=== PATIENT | female | born 1985 | race Caucasian/White ===

== ENCOUNTER 2017-08-02 19:57 | Emergency (ER) | payer OTHER ==
[2017-08-02] MEDS ORDERED: NS 1,000 ML IV ONE (20:06)
--- NOTE | 2017-08-02 20:06 | EDPHY ---
H & P Stated Complaint: CRAMPING BLEEDING 6 WEEKS + HCG Source: Patient, Family () Exam Limitations: No limitations - Personal History LMP (Females 10-55): Over 28 Days Ago Current Tetanus/Diphtheria Vaccine: Yes Current Tetanus Diphtheria and Acellular Pertussis (TDAP): Yes Tetanus Vaccine Date: 03/25 - Medical/Surgical History Hx Asthma: Yes Hx Chronic Respiratory Disease: No Hx Diabetes: No Hx Cardiac Disease: No Hx Renal Disease: No Hx Cirrhosis: No Hx Alcoholism: No Hx HIV/AIDS: No Hx Splenectomy or Spleen Trauma: No Other PMH: D&C - Social History Smoking Status: Never smoked Time Seen by Provider: 08/02/17 20:06 HPI/ROS: HPI: This is a 32-year-old female who presents with Chief Complaint: CRAMPING BLEEDING 6 WEEKS + HCG Location:vaginal Quality: bleeding Duration: 30 min prior to arrival Signs and Symptoms: no fever, no nausea, no vomiting, no hematemesis, no blood in stool, no abdominal bloating, no diarrhea, no back pain, no urinary symptoms , no vaginal discharge, no indigestion, no chest pain, no shortness of breath Timing: Acute Severity: Mild Context: Patient is currently 6 weeks , presents with sudden onset of light red scant amount of vaginal bleeding while she was taking out the charge approximately 30 min prior to arrival. She reports that she also has some nonradiating pelvic cramping. Denies abdominal pain/nausea/vomiting/diarrhea. No recent sexual activity. She believes that her blood type was A positive. She reports that she has had 1 living child and 1 miscarriage in the past with a D&C 04/29/[address]. Murcia. Patient reports that they recently became through intravenous fertilization. Patient is somewhat difficult to understand due to heavy accent. Modifying Factors: None Comment: ROS: see HPI Constitutional: No fever, no chills, no weight loss Eyes: No blurred vision Respiratory: No shortness of breath, no cough Cardiovascular: No chest pain, no palpitations Gastrointestinal: No nausea, no vomiting, no diarrhea, no hematemesis, no blood in stool Genitourinary: No dysuria, no blood in urine Extremities: No myalgias, no edema Neurologic: No weakness, no numbness Skin: No rashes, no petechiae Hematologic: No bruising, no bleeding MEDICAL/SURGICAL/SOCIAL HISTORY: Medical history: Generally healthy. Does not take any regular medications. Surgical history: D&C Social history: . CONSTITUTIONAL: Polite and cooperative, adult female, at bedside, awake and alert, no obvious distress HEENT: Atraumatic and normocephalic, PERRL, EOMI. Tympanic membranes clear. Oropharynx clear, no exudate and moist pink mucosa. Airway patent. No lymphadenopathy. No meningismus. Cardiovascular: Normal S1/S2, regular rate, regular rhythm, without murmur rub or gallop. PULMONARY/CHEST: Symmetrical and nontender. Clear to auscultation bilaterally. Good air movement. No accessory muscle usage. ABDOMEN: Soft, nondistended, nontender, no rebound, no guarding, no peritoneal signs, no masses or organomegaly. No CVAT. EXTREMITIES: 2/2 pulses, strength 5/5, no deformities, no clubbing, no cyanosis or edema. NEUROLOGICAL: no focal neuro deficits. GCS 15. SKIN: Warm and dry, no erythema. no rash. Good capillary refill. (July Weinberg) Constitutional: Initial Vital Signs Temperature (C) 36.9 C 08/02/17 19:58 Heart Rate 83 08/02/17 19:58 Respiratory Rate 18 08/02/17 19:58 Blood Pressure 115/79 08/02/17 19:58 O2 Sat (%) 96 08/02/17 19:58 O2 Delivery Mode Room Air Allergies/Adverse Reactions: No Known Allergies Allergy (Unverified 04/29/16 07:56) Home Medications: Medication Instructions Recorded Estrogen,Con/M-Progest Acet 08/02/17 Medical Decision Making - Diagnostics Imaging Results: Imaging Impressions Obstetrics Ultrasound 08/02/17 20:07 Impression: 1. Single living intrauterine gestation with estimated gestational age of 6 weeks 3 days by crown-rump length, with EDC of March 25, 2018. 2. 4.2 cm subchorionic hemorrhage. 3. Additional findings as above. Findings discussed with July Weinberg on 08/02/2017 at 21:11. ED Course/Re-evaluation: Labs, urinalysis, ultrasound, IV fluids ordered Blood type A positive; RhoGAM not indicated 2044: Labs reviewed; H&[place] [id number] 2119: Called by radiologist who advised that there is a single intrauterine dating 6 weeks 3 days with mild subchorionic hemorrhage and mild free fluid. No signs of ovarian torsion/ectopic Urinalysis shows no signs of infection; no ketones Patient given results; she sees the fertility clinic Tuesday and will call Dr. Murcia to establish care to have repeat HCG and ultrasound. She is placed on pelvic rest. Patient is well-versed in miscarriage precautions. This patient was seen under the supervision of my secondary supervising physician. I evaluated care for this patient independently. Discussed this patient with Dr. Soler who did not see the patient. (July Weinberg) The patient was evaluated and managed by the physician social media assistant. I have reviewed this chart and I agree with the findings and plan of care as documented , as indicated by my signature. I am the secondary supervising physician. ( Jillian Soler) Differential Diagnosis: Vaginal bleeding including but not limited to ectopic , menses, miscarriage, and dysfunctional uterine bleeding. (July Weinberg) - Data Points Laboratory Results: Laboratory Results 08/02/17 20:15 08/02/17 20:15 Medications Given: Discontinued Medications Sodium Chloride (Ns) 1,000 mls @ 0 mls/hr IV ONCE ONE; Wide Open PRN Reason: Protocol Stop: 08/02/17 20:07 Last Admin: 08/02/17 20:11 Dose: 1,000 mls Departure - Departure Disposition: Home, Routine, Self-Care Clinical Impression: First trimester bleeding Condition: Good Instructions: Threatened Miscarriage (ED), Pelvic Rest (ED) Additional Instructions: Consume a minimum of 8-10 glasses of water or electrolyte fluid replacement drinks that include Gatorade, Powerade, Pedialyte. Observe pelvic rest. Please do not engage in any contact sports or moderate physical activity. serum beta HCG level= [id number] Attend your fertility clinic on Tuesday. Call Dr. Murcia office to have an appointment in the next 3-5 days. At which time , they will repeat your serum beta HCG and may or may not perform another ultrasound. Return to the ER immediately if you experience new, continued or worsening abdominal pain, increased vaginal bleeding, fevers/chills, inability to tolerate oral intake, new pain, or any other symptoms that concern you. Referrals: Cecilia Feng MD [Primary Care Provider] - As per Instructions oMnse Murcia DO [Doctor of Osteopathy] - As per Instructions
[2017-08-02 20:25] LABS: PLATELET COUNT 261 10^3/uL (150-400)
[2017-08-02 21:51] VITALS: BP 120/69
== END 2017-08-02 21:52 | disposition home or self-care (01) ==
DX: O20.8 Other hemorrhage in early pregnancy (principal); J45.909 Unspecified asthma, uncomplicated; E86.9 Volume depletion, unspecified; Z3A.01 Less than 8 weeks gestation of pregnancy

== ENCOUNTER → 2017-09-15 | Outpatient (CLI) | payer OTHER | LOC: FIMAGING 12:08 | PROVIDERS: ATTEND Obstetrics & Gynecology | DX: O09.811 Supervision of pregnancy resulting from assisted reproductive technology, first trimester (principal); Z3A.12 12 weeks gestation of pregnancy; Z87.59 Personal history of other complications of pregnancy, childbirth and the puerperium ==

== ENCOUNTER → 2017-11-03 | Outpatient (CLI) | payer OTHER | LOC: FIMAGING 07:23 | PROVIDERS: ATTEND Obstetrics & Gynecology | DX: O09.812 Supervision of pregnancy resulting from assisted reproductive technology, second trimester (principal); O26.872 Cervical shortening, second trimester; Z3A.19 19 weeks gestation of pregnancy ==

== ENCOUNTER → 2017-11-10 | Outpatient (CLI) | payer OTHER | LOC: FIMAGING 13:12 | PROVIDERS: ATTEND Obstetrics & Gynecology | DX: O09.812 Supervision of pregnancy resulting from assisted reproductive technology, second trimester (principal); Z3A.20 20 weeks gestation of pregnancy ==

== ENCOUNTER 2018-04-03 06:26 | Inpatient (IN) | payer OTHER ==
[2018-04-03] MEDS ORDERED: MISOPROSTOL 200 MCG TAB PR PRN (06:40)
[2018-04-03] MEDS ORDERED: OXYTOCIN/RINGERS LACTATE 500 ML IV SCH (06:40)
[2018-04-03] MEDS ORDERED: LR 500 ML IV PRN ×2 (06:40→22:49)
[2018-04-03] MEDS ORDERED: LIDOCAINE 1% 300 MG/30 ML SDV SC PRN (06:40)
[2018-04-03] MEDS ORDERED: TERBUTALINE SULFATE 1 MG/ML VIAL IV PRN (06:40)
[2018-04-03] MEDS ORDERED: EPSOM SALT 454 GM TP PRN (06:40)
[2018-04-03] MEDS ORDERED: OLIVE OIL 118 ML BTL MISC PRN (06:40)
[2018-04-03] MEDS ORDERED: OXYTOCIN/RINGERS LACTATE 1,000 ML IV PRN (06:40)
[2018-04-03] MEDS ORDERED: IBUPROFEN 600 MG TAB PO PRN (06:40)
[2018-04-03] MEDS: LR 1,000 ML IV PRN (07:23)
[2018-04-03 07:43] LABS: PLATELET COUNT 178 10^3/uL (150-400)
[2018-04-03] MEDS ORDERED: LIDOCAINE 1% 300 MG/30 ML SDV ONE (07:51)
[2018-04-03] MEDS ORDERED: OLIVE OIL 118 ML BTL ONE (07:51)
[2018-04-03] MEDS ORDERED: TERBUTALINE SULFATE 1 MG/ML VIAL ONE (07:52)
[2018-04-03] MEDS ORDERED: AMMONIA AROMATIC 1 EACH AMP IH ONE (07:52)
[2018-04-03] MEDS ORDERED: MISOPROSTOL 200 MCG TAB ONE (07:52)
--- NOTE | 2018-04-03 10:05 | GHP ---
DATE OF ADMISSION: 04/03/2018 ADMITTING DIAGNOSES: 1. Intrauterine at 41 weeks and 1 day. 2. Postdates . HISTORY OF PRESENT ILLNESS: The patient is a 32-year-old, 3, para 0-0-2 -0 at 41 weeks and 1 day with an estimated due date 03/26/2018 by IVF with embryo transfer 07/08/2017. The patient presents for an induction of labor secondary to postdates. Patient states good movement noted. Denies any leakage of fluid or vaginal bleeding. States she is feeling most of these contractions in her back. The patient has good care at [facility], and presented in her first trimester. is by IVF and echo was normal. A level 2 ultrasound was normal as well. The patient had first-trimester bleeding and a subchorionic hemorrhage was noted on ultrasound; this resolved. The patient does have a history of a molar . ASHLEY's sister has a rare collagen-related myopathy disorder. ASHLEY is a carrier and the disorder is autosomal dominant, but PGD testing did reveal normal 46, XX female with an unaffected embryo. The patient did get both a flu vaccine and Tdap during the . Patient had an abnormal 1-hour Glucola, but had a normal 3 -hour Glucola. GBS culture is negative. PAST OB HISTORY: In 01/2016, she had a SAB at 6 weeks. In 04/2016, she had a molar at 9 weeks had a suction D and C. PAST WAREHOUSE ORDER PICKER HISTORY: Age of menarche 13. Cycles every 28 days for 3 days. The patient denies a history of abnormal Pap smears or any exposure to sexually transmitted diseases. She has used OCPs in the past. CURRENT MEDICATIONS: Include vitamins with DHA. ALLERGIES: No known drug allergies. PAST MEDICAL HISTORY: Childhood asthma. PAST SURGICAL HISTORY: Suction D and C; eye surgery for strabismus. FAMILY HISTORY: Maternal aunt, breast cancer. Mother, bipolar depression. Paternal grandfather, stroke. ASHLEY's sister, has a a rare form of collagen- related myopathy. SOCIAL HISTORY: The patient is and lives with her . She is a researcher at . Denies any current alcohol, tobacco, or illicit drug use. REVIEW OF SYSTEMS: A 10-point review of systems is negative. Pertinent positives noted in the HPI. LABS: First trimester H and H, 14.6 and 42.6, platelets 291. A positive, antibody negative. RPR nonreactive. Rubella immune. Hepatitis B surface antigen negative. HIV negative. Standard panel all negative. UDS, urine culture, UA negative. Varicella immune. Pap smear negative, as well as GC and chlamydia cultures. Single AFP negative. PGD testing was normal 46, XX. Third trimester H and H, 13.1 and 38.4. 1-hour Glucola was abnormal at 142 ; normal 3-hour Glucola at 82, 127, 144, 129. GBS culture is negative. PHYSICAL EXAMINATION ON ADMISSION: VITAL SIGNS: Stable. Patient is afebrile at 36.7, heart rate 85, respirations 18, blood pressure initially was 127/80, then repeated 111/67. GENERAL: Well-nourished. well-developed female. Alert and oriented x3. No apparent distress. SKIN: Warm, dry without rashes. NEURO : Grossly intact. CARDIOVASCULAR: Regular rate and rhythm. LUNGS: Clear to auscultation bilaterally. ABDOMEN: Gravid, soft, nontender. PELVIC: She is noted to be 2-3 cm dilated, 50% effaced, -2 station, intact. Bedside ultrasound reveals cephalic presentation. EXTREMITIES: Normal to inspection without calf tenderness or edema. heart tones are Category 1 tracing. Baseline 140 beats per minute. There are no accelerations. There was an acceleration noted with scalp stim on exam. No decelerations. Moderate variability. On toco, the patient is amy irregularly every 3-5 minutes. ASSESSMENT/PLAN: The patient is a 32-year-old, 3, para 0-0-2-0, at 41 weeks and 1 day who presents for an induction of labor secondary to postdates. 1. Admit to labor and delivery for induction of labor. 2. Pitocin was already started, currently at 4 milliunits/min. Will continue per protocol. 3. GBS culture is negative. No prophylactic antibiotics are needed. 4. Patient does desire an epidural when uncomfortable. 5. Anticipate . /[id number]/MODL MTDD
[2018-04-03] MEDS ORDERED: D5W LR 500 ML IV ONE (12:00)
--- NOTE | 2018-04-03 13:18 | OBPROG ---
Labor Progress Note Assessment/Plan: Assessment: 32 y/o @ 41 1/7 weeks for postdate IOL Plan: Continue current management Pitocin at 16 mu/min, cont per protocol AROM - mod amount meconium-stained fluid; OBSTETRICIAN AND GYNAECOLOGIST notified IUPC placed, will monitor labor adequacy Epidural upon request FHTs - Cat II tracing with mild, intermittent variable decels Will cont to closely monitor the strip 04/03/18 13:18 Subjective/Intrapartum Course: 04/03/18 13:17 Pt is sitting on ball and eating jello, states most of pain is in her back Objective: 04/03/18 07:15 Patient ABO/Rh A POSITIVE 04/03/18 07:15 - SVE Dilation (cm): 5 Effacement (%): 80 Station: -1 Membranes: AROM Amniotic Fluid Color: Meconium Stained - Contraction Pattern Assessment Current Contraction Pattern: Regular (q2-3 min) - FHR Assessment Hadley FHR (bpm): 150 FHR Pattern Variability: Moderate FHR Category: 2 (intermittent, mild variable decels, overall reassuring strip) - Procedures Non-surgical Procedures: Amniotomy, IUPC - AP Antepartum Course: 04/03/18 13:19 First trimester bleeding with DEJON-resolved; Abnormal 1hr GTT with normal 3-hr GTT; IVF with normal echo; 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 GBS negative. Oxytocin Orders Assessment - Pre-Induction/Augmentation Assessment Gestational Age: 41 week(s) and 1 day(s) ICD10 Worksheet Patient Problems: Problems Problem Status Onset Encounter for induction of labor Acute Meconium in amniotic fluid Acute Post-dates Acute - ICD10 Problem Qualifiers (1) Post-dates (2) Encounter for induction of labor (3) Meconium in amniotic fluid
[2018-04-03] MEDS ORDERED: BUPIVACAINE 0.25% 30 ML SDV ONE (13:53)
[2018-04-03] MEDS ORDERED: FENTANYL EP SCH (14:30)
[2018-04-03] MEDS ORDERED: BUPIVACAINE 0.5% EP SCH (14:30)
[2018-04-03] MEDS ORDERED: NS EP SCH (14:30)
--- NOTE | 2018-04-03 15:10 | PDANEPAE ---
ANE Past Medical History - Cardiovascular History Hx Hypertension: No - Pulmonary History Hx COPD: No Hx Sleep Apnea: No - Endocrine History Hx Diabetes: No - Renal History Hx Renal Disorders: No - Liver History Hx Hepatic Disorders: No - Neurological & Psychiatric Hx Hx Neurological and Psychiatric Disorders: No - Cancer History Hx Cancer: No - Congenital Disorder History Hx Congenital Disorders: No ANE Review of Systems Review of systems is: negative Review of Systems: ANE Patient History - Allergies Allergies/Adverse Reactions: No Known Allergies Allergy (Unverified 04/29/16 07:56) - Home Medications Home Medications: Estrogen,Con/M-Progest Acet 08/02/17 [Last Taken Unknown] - Anes Hx Anes Hx: no prior problems - Smoking Hx Smoking Status: Never smoked - Family Anes Hx Family Anes Hx: none ANE Labs/Vital Signs - Labs Result Diagrams: 04/03/18 07:15 - Vital Signs Height: 163.83 cm Weight: 81.647 kg ANE Physical Exam - Airway Neck exam: FROM Mallampati Score: Class 1 Mouth exam: normal dental/mouth exam - Pulmonary Pulmonary: no respiratory distress - Cardiovascular Cardiovascular: regular rate and rhythym - ASA Status ASA Status: II ANE Anesthesia Plan Anesthesia Plan: epidural
[2018-04-03] MEDS ORDERED: ONDANSETRON 4 MG/2 ML VIAL IVP PRN ×3 (15:49→22:49)
[2018-04-03] MEDS ORDERED: NALOXONE HCL 0.4 MG/ML INJ IVP PRN ×2 (15:49→22:49)
[2018-04-03] MEDS ORDERED: fentaNYL 2MCG/ML/BUP 0.1% RTU 100 ML EP SCH (16:00)
--- NOTE | 2018-04-03 17:03 | OBPROG ---
Labor Progress Note Assessment/Plan: Assessment: 32 y/o @ 41 1/7 weeks for postdate IOL Plan: Continue current management s/p epidural Pitocin at 6 mu/min, cont per protocol SVE: Ant lip/+1 FHTs - Cat II tracing with mild, intermittent variable decels and early decels Will cont to closely monitor the strip Have pt labor down x 1 hour or so and then start pushing 04/03/18 17:00 Subjective/Intrapartum Course: 04/03/18 13:17 Pt is sitting on ball and eating jello, states most of pain is in her back 04/03/18 17:02 Pt is comfortable, s/p epidural, with no complaints Objective: 04/03/18 07:15 Patient ABO/Rh A POSITIVE 04/03/18 07:15 - SVE Dilation (cm): 9 (Ant lip) Effacement (%): 100 Station: +1 Membranes: AROM Amniotic Fluid Color: Meconium Stained - Contraction Pattern Assessment Current Contraction Pattern: Regular (q2-3 min) - FHR Assessment Hadley FHR (bpm): 145 FHR Pattern Variability: Moderate FHR Category: 2 (Intermittent, mild variable decels and early decels) - Procedures Non-surgical Procedures: Amniotomy, IUPC - AP Antepartum Course: 04/03/18 13:19 First trimester bleeding with DEJON-resolved; Abnormal 1hr GTT with normal 3-hr GTT; IVF with normal echo; 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 GBS negative. Oxytocin Orders Assessment - Pre-Induction/Augmentation Assessment Gestational Age: 41 week(s) and 1 day(s) ICD10 Worksheet Patient Problems: Problems Problem Status Onset Encounter for induction of labor Acute Meconium in amniotic fluid Acute Post-dates Acute - ICD10 Problem Qualifiers (1) Post-dates (2) Encounter for induction of labor (3) Meconium in amniotic fluid
[2018-04-03] MEDS ORDERED: ceFAZolin 2 GM/DEXTROSE 100 ML IV ONE (21:14)
--- NOTE | 2018-04-03 21:19 | OBPROG ---
Labor Progress Note Assessment/Plan: Assessment: 32 y/o @ 41 1/7 weeks for postdate IOL Plan: Pt has been pushing x 2 hours now and previously labored down for one hour; there has been multiple position changes and good maternal effort with pushing and still no descent in head; mostly caput is noted and suspect direct OP Discussed with pt and FOC proceeding to OR for secondary to arrest of descent Surgical consents were obtained; Discussed R/B/A with pt including but not limited to bleeding, infection and damage to surrounding organs Pt understands all risks of the procedure and wants to proceed at this time Abx reception specialist to OR Anesthesiologist notified SCDs for DVT prophylaxis 04/03/18 21:14 Subjective/Intrapartum Course: 04/03/18 13:17 Pt is sitting on ball and eating jello, states most of pain is in her back 04/03/18 17:02 Pt is comfortable, s/p epidural, with no complaints 04/03/18 21:19 Pt is pushing and notes constant pain in her back, she does not feel any pain in her abdomen. She states "she cannot push like this much longer." Objective: 04/03/18 07:15 Patient ABO/Rh A POSITIVE 04/03/18 07:15 - SVE Dilation (cm): 10 Station: +1, +2 Membranes: AROM Amniotic Fluid Color: Meconium Stained - Contraction Pattern Assessment Current Contraction Pattern: Regular (q2-3 min) - FHR Assessment Hadley FHR (bpm): 140 FHR Pattern Variability: Moderate FHR Category: 2 (Mild variable decels during each contraction; overall reassuring) - Procedures Non-surgical Procedures: Amniotomy, IUPC - AP Antepartum Course: 04/03/18 13:19 First trimester bleeding with DEJON-resolved; Abnormal 1hr GTT with normal 3-hr GTT; IVF with normal echo; 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 GBS negative. Oxytocin Orders Assessment - Pre-Induction/Augmentation Assessment Gestational Age: 41 week(s) and 1 day(s) ICD10 Worksheet Patient Problems: Problems Problem Status Onset Arrest of descent, delivered, current hospitalization Acute Encounter for induction of labor Acute Meconium in amniotic fluid Acute Post-dates Acute - ICD10 Problem Qualifiers (1) Post-dates (2) Encounter for induction of labor (3) Meconium in amniotic fluid (4) Arrest of descent, delivered, current hospitalization
[2018-04-03] MEDS ORDERED: morphINE PF 5 MG/10 ML INJ ONE (21:51)
[2018-04-03] MEDS ORDERED: METHYLERGONOVINE MAL 0.2 MG/ML INJ ONE (21:59)
[2018-04-03] MEDS ORDERED: HYDROmorphONE/DILAUDID 2 MG/ML INJ IVP PRN (22:49)
[2018-04-03] MEDS ORDERED: fentaNYL 100 MCG/2 ML INJ IVP PRN (22:49)
[2018-04-03] MEDS ORDERED: PHENYLEPHRINE HCL 100 MCG/ML SYR ONE (22:59)
[2018-04-03] MEDS ORDERED: POLYETHYLENE GLYCOL 3350 17 GM PKT PO PRN (23:25)
[2018-04-03] MEDS ORDERED: BISACODYL 10 MG SUPP PR PRN (23:25)
[2018-04-03] MEDS ORDERED: DOCUSATE SODIUM 100 MG CAP PO PRN (23:25)
[2018-04-03] MEDS ORDERED: SIMETHICONE 80 MG TAB CHEW PO PRN (23:25)
[2018-04-03] MEDS ORDERED: LACTULOSE 20 GM/30 ML UDCUP PO PRN (23:25)
[2018-04-03] MEDS ORDERED: MAGNESIUM HYDROXIDE 30 ML UDCUP PO PRN (23:25)
[2018-04-03] MEDS ORDERED: PROMETHAZINE HCL 25 MG/ML INJ IVP PRN (23:25)
[2018-04-03] MEDS ORDERED: oxyCODONE IR 5 MG TAB PO PRN (23:25)
--- NOTE | 2018-04-03 23:27 | POSTANESTH ---
Post Anesthetic Evaluation Cardiovascular Status: Normal, Stable Respiratory Status: Normal, Stable Level of Consciousness/Mental Status: Can Participate in Eval Pain Control: Adequate, Prn Tx Ordered Nausea/Vomiting Control: Adequate, Prn Tx Ordered Complications Possibly Related to Anesthesia: None Noted
--- NOTE | 2018-04-03 23:27 | PREANESOB ---
Obstetric Pre-Anesthesia Info - General Info : 3 Para: 0 JOHN: 03/26/18 Gestational Age: 41 week(s) and 1 day(s) - Info Status: Full Term Monitors: External FHR Pattern: Reassuring - Labor Status Cervical Dilation per last OB SVE: 10 Station per last OB SVE: +1, +2 Amniotic Fluid Color: Meconium Stained Section History: Primary Indications for Current Section: Arrest of Descent Labor Epidural: Yes Anesthesia Allergies/Adverse Reactions: Allergy/AdvReac Type Severity Reaction Status Date / Time No Known Allergies Allergy Unverified 04/29/16 07:56 Home Medications: Medication Instructions Recorded Estrogen,Con/M-Progest Acet 08/02/17 Visit Medications: Generic Name Dose Route Start Last Admin Trade Name Freq PRN Reason Stop Dose Admin Diphenhydramine HCl 25 - 50 mg 04/03/18 15:49 Benadryl Injection IVP 09/30/18 15:48 Q6HRS PRN Itching Ephedrine Sulfate 10 mg 04/03/18 15:49 Ephedrine Sulfate IV 09/30/18 15:48 .Q2M PRN Hypotension Fentanyl 25 - 100 mcg 04/03/18 22:49 Sublimaze IVP 04/03/18 23:54 Q5M PRN PACU, IMMEDIATE Pain control Hydromorphone HCl 0.1 - 0.4 mg 04/03/18 22:49 Dilaudid IVP 04/03/18 23:55 Q10M PRN PACU, PAIN Lactated Ringer's 1,000 mls @ 0 mls/hr 04/03/18 06:40 04/03/18 07:23 Lr IV 04/04/18 06:39 1,000 mls PRN PRN Administration SEE PROTOCOL CONDITIONS Protocol Per Protocol Lactated Ringer's 500 mls @ 500 mls/hr 04/03/18 06:40 Lr IV PRN PRN Maternal Hypotension Oxytocin/Lactated Ringer's 1,000 mls @ 125 mls/hr 04/03/18 06:40 Pitocin 20 Units/Lr (Premix) IV PRN PRN Post bleeding Oxytocin/Lactated Ringer's 500 mls @ 0 mls/hr 04/03/18 06:40 04/03/18 07:20 Pitocin 30 Units/Lr (Premix) IV 09/30/18 06:39 500 mls CONT DEJON Administration Protocol Per Protocol Fentanyl 200 mcg/ Bupivacaine 100 mls @ 0 mls/hr 04/03/18 14:30 HCl 20 ml/ Sodium Chloride EP 04/13/18 14:29 CONT DEJON Protocol As Directed Lactated Ringer's 500 mls @ 0 mls/hr 04/03/18 22:49 Lr IV 04/03/18 23:55 PRN PRN PACU, Nausea/Vomiting Post-Op Wide Open Ibuprofen 600 mg 04/03/18 06:40 Motrin PO ONCE PRN post , pain Lidocaine HCl 300 mg 04/03/18 06:40 Lidocaine Hcl 1% SC 09/30/18 06:39 ONCE PRN episiotomy Magnesium Sulfate 454 gm 04/03/18 06:40 Epsom Salt TP 09/30/18 06:39 Q1H PRN perineal discomfort Misoprostol 800 - 1,000 mcg 04/03/18 06:40 Cytotec AZ ONCE PRN Vaginal Atony/Bleeding Naloxone HCl 0.4 mg 04/03/18 15:49 Narcan IVP 09/30/18 15:48 PRN PRN Respiratory depression Naloxone HCl 0.1 mg 04/03/18 22:49 Narcan IVP 04/03/18 23:54 Q2M PRN PACU Resp Rate <10/min Coden Oil 118 ml 04/03/18 06:40 Sweet Oil MISC 09/30/18 06:39 ONCE PRN perineal massage Ondansetron HCl 4 mg 04/03/18 15:49 Zofran IVP 04/04/18 15:48 Q4HRS PRN Nausea/Vomiting, Can't Take PO Ondansetron HCl 4 mg 04/03/18 22:49 Zofran IVP 04/04/18 22:48 Q4HRS PRN Nausea/Vomiting, Can't Take PO Ondansetron HCl 2 - 4 mg 04/03/18 22:49 Zofran IVP 04/03/18 23:55 Q10M PRN PACU, Nausea/Vomiting Terbutaline Sulfate 0.25 mg 04/03/18 06:40 Brethine IV 09/30/18 06:39 ONCE PRN Tachysystole Discontinued Medications Generic Name Dose Route Start Last Admin Trade Name Freq PRN Reason Stop Dose Admin Ammonia (Aromatic Spirit) Confirm 04/03/18 07:52 Ammonia Aromatic Administered 04/03/18 07:53 Dose 1 each IH .STK-MED ONE Bupivacaine HCl Confirm 04/03/18 13:53 Sensorcaine 0.25% Sdv Administered 04/03/18 13:54 Dose 30 ml .ROUTE .STK-MED ONE Dextrose/Lactated Ringer's 500 mls @ 0 mls/hr 04/03/18 12:00 04/03/18 11:30 D5w Lr IV 04/03/18 12:01 500 mls ONCE ONE Administration Fentanyl/Bupivacaine HCl 100 mls @ 0 mls/hr 04/03/18 16:00 Fentanyl/Bupivacaine/Ns 2 Mcg/Ml 0.1% (Premix EP 04/13/18 15:59 CONT DEJON Protocol As Directed Cefazolin Sodium/Dextrose 100 mls @ 200 mls/hr 04/03/18 21:14 04/03/18 21:43 Ancef IV 04/03/18 21:43 100 mls ONCALL ONE Administration Protocol Lidocaine HCl Confirm 04/03/18 07:51 Lidocaine Hcl 1% Administered 04/03/18 07:52 Dose 300 mg .ROUTE .STK-MED ONE Methylergonovine Maleate Confirm 04/03/18 21:59 Methergine Administered 04/03/18 22:00 Dose 0.2 mg .ROUTE .STK-MED ONE Misoprostol Confirm 04/03/18 07:52 Cytotec Administered 04/03/18 07:53 Dose 1,000 mcg .ROUTE .STK-MED ONE Morphine Sulfate Confirm 04/03/18 21:51 Morphine Pf 5 Mg/10 Ml Administered 04/03/18 21:52 Dose 5 mg .ROUTE .STK-MED ONE Coden Oil Confirm 04/03/18 07:51 Sweet Oil Administered 04/03/18 07:52 Dose 118 ml .ROUTE .STK-MED ONE Phenylephrine HCl Confirm 04/03/18 22:59 Neosynephrine Administered 04/03/18 23:00 Dose 1,000 mcg .ROUTE .STK-MED ONE Terbutaline Sulfate Confirm 04/03/18 07:52 Brethine Administered 04/03/18 07:53 Dose 1 mg .ROUTE .STK-MED ONE - Vital Signs Latest Vital Signs (Nursing): Temp Pulse Resp BP Pulse Ox 37.4 C 93 123/67 H 100 04/03/18 21:25 04/03/18 21:25 04/03/18 21:25 04/03/18 21:25 Height/Weight (Nursing): Height 163.83 cm Weight 81.647 kg Labs: 04/03/18 07:15 Patient ABO/Rh A POSITIVE 04/03/18 07:15
--- NOTE | 2018-04-03 23:31 | OBDEL ---
Info Type: Primary Presentation at Delivery: Vertex (Direct OP) L&D Analgesia/Anesthesia Type: Epidural GBS+: No Intrapartum Medications: Generic Name Dose Route Start Last Admin Trade Name Freq PRN Reason Stop Dose Admin Lactated Ringer's 1,000 mls @ 0 mls/hr 04/03/18 06:40 04/03/18 07:23 Lr IV 04/04/18 06:39 1,000 mls PRN PRN Administration SEE PROTOCOL CONDITIONS Protocol Per Protocol Oxytocin/Lactated Ringer's 500 mls @ 0 mls/hr 04/03/18 06:40 04/03/18 07:20 Pitocin 30 Units/Lr (Premix) IV 09/30/18 06:39 500 mls CONT DEJON Administration Protocol Per Protocol Discontinued Medications Generic Name Dose Route Start Last Admin Trade Name Freq PRN Reason Stop Dose Admin Dextrose/Lactated Ringer's 500 mls @ 0 mls/hr 04/03/18 12:00 04/03/18 11:30 D5w Lr IV 04/03/18 12:01 500 mls ONCE ONE Administration Cefazolin Sodium/Dextrose 100 mls @ 200 mls/hr 04/03/18 21:14 04/03/18 21:43 Ancef IV 04/03/18 21:43 100 mls ONCALL ONE Administration Protocol - Infant Care Provider Chemical Technician/CUSTOMS MANAGER: Lindy Jacobson - Hospital Course Intrapartum: 04/03/18 13:17 Pt is sitting on ball and eating jello, states most of pain is in her back 04/03/18 17:02 Pt is comfortable, s/p epidural, with no complaints 04/03/18 21:19 Pt is pushing and notes constant pain in her back, she does not feel any pain in her abdomen. She states "she cannot push like this much longer." Indications for Delivery: Postterm Favorable Cervix Vaginal Delivery - Labor and Delivery Onset of Contractions Date: 04/03/18 Amniotic Fluid Color: Meconium Stained Non-surgical Procedures: Amniotomy, [facility] Operative Report - Delivery Pre-op Diagnoses: IUP @ 41 1/7 weeks for IOL secondary to postdates and arrest of descent Post-op Diagnoses: IUP @ 41 1/7 weeks for IOL secondary to postdates and arrest of descent History of Prior Section: No Number of Prior Sections: 0 Nulliparous Prior to Delivery: Yes Indications for Current Section: Arrest of Descent Procedure: Unscheduled, Low Transverse Surgeon: Francisca Rasheed Principal Network Engineer: Karine South Anesthesiologist: Luis Davis Complications: None Findings: A viable male in direct OP presentation born at 2231 with 8 and 8 Apgars. Delayed cord clamping x 60 seconds. Cord gases as well as blood obtained. Placenta delivered spontaneously intact with 3-vc. Grossly normal appearing uterus, tubes and ovaries. No complications. Specimen(s)/Path: Other (Specify) (none) IV Fluid (ml): 2,200 EBL: 800 cc UO: 100 cc concentrated urine Data JOHN: 03/26/18 Gestational Age: 41 week(s) and 1 day(s) [place] Delivery Date: 04/03/18 Delivery Time: 22:31 Sex of : Male Score (1 Min): 8 Score (5 Min): 8 ICD10 Worksheet Patient Problems: Problems Problem Status Onset Arrest of descent, delivered, current hospitalization Acute Encounter for induction of labor Acute Meconium in amniotic fluid Acute Post-dates Acute Status post primary low transverse section Acute - ICD10 Problem Qualifiers (1) Post-dates (2) Encounter for induction of labor (3) Meconium in amniotic fluid (4) Arrest of descent, delivered, current hospitalization (5) Status post primary low transverse section
[2018-04-04] MEDS: KETOROLAC 30 MG/1 ML SDV IVP SCH ×4 (00:25→19:09)
[2018-04-04] MEDS: ACETAMINOPHEN 325 MG TAB PO SCH ×4 (00:32→19:08)
[2018-04-04] MEDS: LR 1,000 ML IV PRN ×2 (04:59→05:41)
--- NOTE | 2018-04-04 06:46 | GOP ---
DATE OF OPERATION: 04/03/2018 SURGEON: Francisca Rasheed DO PERINATAL EDUCATOR: POORNIMA Aviles. ANESTHESIA: Epidural. ANESTHESIOLOGIST: Luis Davis MD. PREOPERATIVE DIAGNOSIS: 1. Intrauterine at 41 weeks and 1 day. 2. Induction of labor secondary to postdates. 3. Arrest of descent. POSTOPERATIVE DIAGNOSIS: 1. Intrauterine at 41 weeks and 1 day. 2. Induction of labor secondary to post date . 3. Arrest of descent. PROCEDURE PERFORMED: Primary low transverse section. FINDINGS: A viable male infant in direct OP presentation with anteflexed head born at 2231 with 8 and 8 Apgars, weighing 7 pounds 15 ounces. Delayed cord clamping x60 seconds. Cord gases as well as cord blood was obtained. Placenta delivered spontaneously intact with 3-vessel cord. Grossly normal-appearing uterus, tubes, and ovaries bilaterally. ESTIMATED BLOOD LOSS: 800 cc. INDICATIONS: The patient is a 32-year-old, 3, para 0-0-2-0 at 41 weeks and 1 day who presents for induction of labor secondary to postdate . The patient had a favorable cervix upon admission, and was started on Pitocin. The patient progressed to 5 cm, membranes ruptured and meconium-stained amniotic fluid was noted. The patient then received an epidural. She progressed nicely to 10 cm and then after 2 hours of pushing with an hour of laboring down there was minimal descent of head with mostly caput noted at +2 station, suspect direct OP presentation. Discussed proceeding to the operating room for a primary secondary to arrest of descent. Discussed risks, benefits, alternatives of the procedure including but not limited to, bleeding, infection, and damage to surrounding organs. The patient understands all risks at this time and agrees to proceed to the operating room. The patient was properly consented. DESCRIPTION OF PROCEDURE: The patient was taken to the operating room where epidural anesthesia was re-bolused. The patient was placed in dorsal supine position with a leftward tilt and then prepped and draped in the usual sterile fashion. A Nelson catheter was already placed prior to coming back to OR. After adequate anesthesia was noted, and a WHO time-out was performed, a Pfannenstiel skin incision was then made with a scalpel 2 fingerbreadths above the pubic bone and carried down through the underlying layer of fascia using the Bovie. The fascia was then incised in the midline and extended laterally using the Van scissors. Renetta clamps were then used to elevate the superior aspect of the fascial incision which was elevated and underlying rectus muscles were dissected off using the Van scissors. Attention was then turned to inferior aspect of fascial incision which in a similar fashion was grasped with Renetta clamps, elevated, and underlying rectus muscles were dissected off using Van scissors. Rectus muscles were then dissected in the midline. Peritoneum was identified, entered bluntly and incision was extended superiorly and inferiorly with good visualization of the bladder. Bladder blade was then inserted. Vesicouterine peritoneum was identified, entered sharply with Metzenbaum scissors. Incision was extended laterally and the bladder flap was created digitally. Bladder blade was reinserted. The lower uterine segment was identified and then incised in a transverse fashion using the scalpel, and extended cephalad and caudad with manual traction. Again, meconium-stained fluid was noted. The 's head was difficult to deliver secondary to anteflexed head and direct OP position. The head was finally delivered out of the pelvis, followed by remainder of body. Cord clamping was delayed for 60 seconds. Cord was then clamped x2 and then cut. handed to [facility]. Cord blood as well as cord gases were obtained. Placenta was delivered spontaneously intact with 3-vessel cord. Uterus was exteriorized and cleared of all clots and debris. Uterine incision was repaired in 2 layers using 0 Vicryl suture. First layer was a running lock stitch of 0 Vicryl. Hemostasis noted. Second layer was an imbricating layer of 0 Vicryl. There was some oozing noted, [id number] stitches x 2 were used for this bleeding. Hemostasis was then achieved. The uterus was then returned to the abdomen. The gutters were then cleared of all debris. The uterine incision was reexamined and was noted to be hemostatic. Lewis was placed on the uterine incision for further hemostasis. The rectus muscles were then reapproximated in the midline using 3-0 Vicryl. The fascia was then closed with 0 Vicryl suture. Hemostasis was noted. Subcutaneous layer was closed with 2-0 Vicryl and the skin was closed with 4-0 Vicryl on a Sharan needle. Sponge, lap, needle and instrument counts correct x2. Patient tolerated the procedure well. No complications. The patient was stable at the completion of the procedure and was transferred to the recovery room in stable condition. IV FLUIDS: 2200 cc LR. URINE OUTPUT: 100 cc of concentrated urine at the end of the procedure. COMPLICATIONS: None. SPECIMENS: None. /[id number]/MODL MTDD
--- NOTE | 2018-04-04 07:00 | POSTANESTH ---
Post Anesthetic Evaluation Cardiovascular Status: Normal, Stable Respiratory Status: Normal, Stable Level of Consciousness/Mental Status: Can Participate in Eval (Epidural End Time 22:31), Alert and Oriented Pain Control: Adequate, Prn Tx Ordered Nausea/Vomiting Control: Adequate, Prn Tx Ordered
--- NOTE | 2018-04-04 10:06 | OBPP ---
Progress Note Assessment/Plan: Assessment: 32 y/o POD #1 s/p LTCS secondary to arrest of descent doing well. Plan: Syd-Sequels ordered today. Ambulate with assistance, del cid out this pm. Regular diet and transition to po pain meds. Bottle feeding and waiting for peds. 04/04/18 10:05 Subjective/ Course: 04/04/18 10:03 Pt is doing well this am. She has min incisional discomfort with movement, but overall pain is controlled with Duramorph and Toradol. No n/v, dagoberto reg diet. She is not breast feeding and denies breast discomfort. Baby is doing well has bottle fed a few times. Objective: 04/04/18 06:20 Patient ABO/Rh A POSITIVE 04/03/18 07:15 Temp Pulse Resp BP Pulse Ox 37 C 114 H 18 94/58 L 94 04/04/18 04:30 04/04/18 04:45 04/04/18 04:30 04/04/18 08:45 04/04/18 09:00 Uterine Position/Fundal Height: Umbilicus -1 Uterine Tone: Firm Physical Exam - Physical Exam General Appearance: alert, no apparent distress Neck: non-tender, full range of motion, supple Respiratory: chest non-tender, lungs clear, normal breath sounds Cardiac/Chest: regular rate, rhythm Abdomen: normal bowel sounds, dressing (c/d/i) Extremities: swelling (tr), Maulik's sign (neg)
[2018-04-04] MEDS: FERRO-SEQUELS 65 MG TAB.ER PO SCH (12:29)
[2018-04-05] MEDS: ACETAMINOPHEN 325 MG TAB PO SCH ×4 (02:01→22:31)
[2018-04-05] MEDS: IBUPROFEN 600 MG TAB PO SCH ×4 (02:01→22:30)
[2018-04-05] MEDS: SENNOSIDES/DOCUSATE SODIUM TAB PO SCH ×3 (05:30→10:39)
[2018-04-05] MEDS: FERRO-SEQUELS 65 MG TAB.ER PO SCH (10:32)
--- NOTE | 2018-04-05 10:42 | OBPP ---
Progress Note Assessment/Plan: Assessment: POD 1 1/2 s/p primary C/S for arrest of dilation anemia Plan: routine care, iron daily 04/05/18 10:37 Subjective/ Course: 04/04/18 10:03 Pt is doing well this am. She has min incisional discomfort with movement, but overall pain is controlled with Duramorph and Toradol. No n/v, dagoberto reg diet. She is not breast feeding and denies breast discomfort. Baby is doing well has bottle fed a few times. 04/05/18 10:38 Pt doing well. Walked over from Labor and Delivery. Amb well. No BM yet and feels a bit gassy. urinating fine. bld is like moderate menses. Not Breast feeding. no nausea and hydrating well. Was wearing bra yesterday but not too tight - disc binding up breasts with micah wrap. Objective: 04/04/18 06:20 Patient ABO/Rh A POSITIVE 04/03/18 07:15 Temp Pulse Resp BP Pulse Ox 36.2 C 110 H 17 107/68 96 04/05/18 10:23 04/05/18 10:23 04/05/18 10:23 04/05/18 10:23 04/05/18 10:23 Uterine Position/Fundal Height: Umbilicus -2 Uterine Tone: Firm Physical Exam - Physical Exam Abdomen: non-tender (approp post op tenderness), soft, incision (CDI, no drainage) Extremities: non-tender, pedal edema (minimal) Skin: normal color, warm/dry Neuro/Psych: alert, normal mood/affect
[2018-04-06] MEDS: ACETAMINOPHEN 325 MG TAB PO SCH ×2 (04:59→11:48)
[2018-04-06] MEDS: IBUPROFEN 600 MG TAB PO SCH ×2 (04:59→11:48)
[2018-04-06] MEDS: SENNOSIDES/DOCUSATE SODIUM TAB PO SCH ×2 (05:33→10:45)
[2018-04-06] MEDS: FERRO-SEQUELS 65 MG TAB.ER PO SCH (10:44)
--- NOTE | 2018-04-06 11:11 | OBGCSDC ---
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 GBS negative. Intrapartum: 04/03/18 13:17 Pt is sitting on ball and eating jello, states most of pain is in her back 04/03/18 17:02 Pt is comfortable, s/p epidural, with no complaints 04/03/18 21:19 Pt is pushing and notes constant pain in her back, she does not feel any pain in her abdomen. She states "she cannot push like this much longer." : 04/04/18 10:03 Pt is doing well this am. She has min incisional discomfort with movement, but overall pain is controlled with Duramorph and Toradol. No n/v, dagoberto reg diet. She is not breast feeding and denies breast discomfort. Baby is doing well has bottle fed a few times. 04/05/18 10:38 Pt doing well. Walked over from Labor and Delivery. Amb well. No BM yet and feels a bit gassy. urinating fine. bld is like moderate menses. Not Breast feeding. no nausea and hydrating well. Was wearing bra yesterday but not too tight - disc binding up breasts with micah wrap. Vaginal - Diagnosis Amniotic Fluid Color: Meconium Stained - Procedures Non-surgical Procedures: Amniotomy, [facility] - Delivery Providers Surgeon: Francisca Rasheed Associate Quality Engineer: Karine South Anesthesiologist: Luis Davis - Delivery Number of Prior Sections: 0 Indications for Current Section: Arrest of Descent Non-surgical Procedures: Amniotomy, IUPC Surgical Procedures: Unscheduled, Low Transverse Intra-op Complications: None EBL: 800 cc UO: 100 cc concentrated urine [place] Data JOHN: 03/26/18 Gestational Age: 41 week(s) and 4 day(s) [place] Delivery Date: 04/04/18 Delivery Time: 22:31 Sex of Infant: Male [place] Weight (gm): 3543.69 g Score (1 Min): 8 Score (5 Min): 8 Discharge Information - Discharge Information Condition: Good Instruction/Follow Up: See Instruction Sheet, Two Weeks, Four Weeks, Six Weeks
--- NOTE | 2018-04-06 11:11 | OBPP ---
Progress Note Assessment/Plan: Assessment: POD2 s/p PLTCS for arrest of descent. Doing well, fully advanced. Not , discussed tips for decreasing milk supply. Pain well controlled. Rh pos, Rubella immune. JM Subjective/ Course: 04/04/18 10:03 Pt is doing well this am. She has min incisional discomfort with movement, but overall pain is controlled with Duramorph and Toradol. No n/v, dagoberto reg diet. She is not breast feeding and denies breast discomfort. Baby is doing well has bottle fed a few times. 04/05/18 10:38 Pt doing well. Walked over from Labor and Delivery. Amb well. No BM yet and feels a bit gassy. urinating fine. bld is like moderate menses. Not Breast feeding. no nausea and hydrating well. Was wearing bra yesterday but not too tight - disc binding up breasts with micah wrap. 04/06/18 16:04 Bella is doing well this AM - feeling ready for home. Incision not really bothering her. Not BF. Objective: 04/04/18 06:20 Patient ABO/Rh A POSITIVE 04/03/18 07:15 Temp Pulse Resp BP Pulse Ox 36.2 C 93 18 104/73 96 04/05/18 20:00 04/05/18 20:00 04/05/18 20:00 04/05/18 20:00 04/05/18 20:00 Uterine Position/Fundal Height: At Umbilicus Uterine Tone: Firm Physical Exam - Physical Exam Abdomen: incision (CDI with suture, no s/sx of infection)
[2018-04-06 16:09] VITALS: BP 106/72
== END 2018-04-06 16:00 | disposition home or self-care (01) | DRG 788 ==
LOC: FLD 06:26 → FOB 04-05 09:37
PROVIDERS: ADMIT Obstetrics & Gynecology; ATTEND Obstetrics & Gynecology
DX: O48.0 Post-term pregnancy (principal); O32.4XX0 Maternal care for high head at term, not applicable or unspecified; Z37.0 Single live birth
CPT/HCPCS: J0690; J1885; J2210; J2274; J2370; J2590; J3010; J3105